=== PATIENT | female | born 1965 | race African-American/Black ===

== ENCOUNTER 2019-03-29 10:20 | Inpatient (IN) ==
[2019-03-29] MEDS ORDERED: VANCOMYCIN INJ 1,000 MG in SODIUM CHLORIDE 0.9% 250 ML IV STA (10:50)
[2019-03-29] MEDS ORDERED: SODIUM CHLORIDE 0.9% 1,000 ML IV STA ×2 (10:50→12:15)
[2019-03-29] MEDS ORDERED: metroNIDAZOLE INJ 500 MG in PREMIX 1 EACH IV STA (11:00)
[2019-03-29] MEDS ORDERED: ONDANSETRON 4 MG/2 ML VIAL IV STA (11:01)
[2019-03-29] MEDS ORDERED: ALBUTEROL/IPRATROPIUM 3 ML NEB RESP TX STA (11:01)
[2019-03-29] MEDS ORDERED: KETOROLAC 30 MG/1 ML VIAL IV STA (11:02)
[2019-03-29] MEDS ORDERED: ACETAMINOPHEN 500 MG TABLET PO STA (11:02)
[2019-03-29 11:32] LABS: Basophils # 0.1 10*3/uL (0.0-0.2); Basophils % 0.2 % (0.0-0.8); Hematocrit 20.4 VOL% (35.7-47.0); Hemoglobin 6.5 GM/DL (12.0-16.0); Immature Granulocytes % 1.1 %; Immature Granulocytes Absolute 0.23 #; Lymphocytes # 1.4 10*3/uL (1.4-4.0); Lymphocytes % 6.6 % (21.3-54.2); Mean Corpuscular HGB Conc 31.9 GM/DL (32-36); Mean Corpuscular Volume 77.3 FL (87-102); Mean Platelet Volume 9.7 FL (9.6-12.0); NRBC # 0.04 10*3/uL; Neutrophils % 90.1 % (38.7-73.9); Platelet Count 283 T/CUMM (130-400); Red Blood Count 2.64 MC/CUMM (3.8-5.5); Red Cell Distribution Width 18.8 % (9.3-17.3); White Blood Count 20.9 T/CUMM (4-12)
[2019-03-29 11:39] LABS: INR 1.1; PT Patient Result 12.1 SECS (9.6-12.2)
[2019-03-29 11:51] LABS: Alanine Aminotransferase 17 U/L (13-56); Albumin 1.6 G/DL (3.4-5.0); Alkaline Phosphatase 633 U/L (45-117); Amylase 117 U/L (25-115); Aspartate Amino Transferase 71 U/L (0-37); Blood Urea Nitrogen 41 MG/DL (7-18); Glucose 104 MG/DL (74-106); Osmolality,Calculated 284.7 MOS/KG (273-304); Total Protein 7.5 G/DL (6.4-8.3); Troponin I < 0.015 NG/ML (0.00-0.045)
[2019-03-29 11:54] LABS: Apearance,Urine Slightly Hazy (Clear); Bacteria,Urine Many /HPF (Few); Bilirubin,Urine Negative (Negative); Blood, Urine Negative (Negative); Glucose,Urine (UA) Negative (Negative); Hyaline Casts,Urine 42 /LPF (0-3); Ketones,Urine Negative (Negative); Nitrite,Urine Negative (Negative); Protein,Urine Negative; Squamous Epithelial Cell,Urine Occasional /HPF (0-10); Urine Color Amber (Yellow); Urine Specific Gravity 1.015 (1.001-1.035); WBC,Urine 12 /HPF (0-6)
[2019-03-29 11:59] LABS: Band Neutrophils 1 % (0-10); Hypochromasia 2+; Lymphocytes 3 % (20-55); Nucleated Red Blood Cells 1 (0-5); Segmented Neutrophils 96 % (50-85); Total Cells Counted 100
[2019-03-29 12:00] LABS: Microcytosis 2+; Ovalocytes Few; Platelet Estimate Normal; Polychromasia Few; Stomatocytes Slight
[2019-03-29] MEDS: cefTRIAXone 2,000 MG in SYRINGE 1 EACH IV SCH (14:40)
[2019-03-29] MEDS ORDERED: ONDANSETRON 4 MG/2 ML VIAL IV PRN (14:59)
[2019-03-29] MEDS ORDERED: ACETAMINOPHEN 325 MG TABLET PO PRN (14:59)
[2019-03-29] MEDS: SODIUM CHLORIDE 0.9% 1,000 ML IV SCH ×2 (15:32→23:38)
[2019-03-29] MEDS: PHENYLEPHRINE DRIP 40 MG/250 ML PREMIX IV PRN ×2 (15:37→21:39)
[2019-03-29] MEDS ORDERED: PHENYLEPHRINE DRIP 40 MG/250 ML PREMIX IV ONE (15:37)
[2019-03-29] MEDS ORDERED: SODIUM CHLORIDE 0.9% 1,000 ML IV PRN (15:57)
[2019-03-29] MEDS: LEVOFLOXACIN INJ 750 MG in PREMIX 1 EACH IV SCH (16:24)
[2019-03-29] MEDS: PANTOPRAZOLE 40 MG TABLET PO SCH (16:43)
[2019-03-29] MEDS ORDERED: ENOXAPARIN 30 MG/0.3 ML SYRINGE SUBCUT SCH (21:00)
[2019-03-30] MEDS: PHENYLEPHRINE DRIP 40 MG/250 ML PREMIX IV PRN ×8 (02:25→22:40)
[2019-03-30 02:42] LABS: Basophils # 0.1 10*3/uL (0.0-0.2); Basophils % 0.2 % (0.0-0.8); Eosinophils % 0.1 % (0.00-10.9); Hematocrit 26.3 VOL% (35.7-47.0); Hemoglobin 8.5 GM/DL (12.0-16.0); Immature Granulocytes % 0.7 %; Immature Granulocytes Absolute 0.18 #; Lymphocytes # 1.4 10*3/uL (1.4-4.0); Lymphocytes % 5.4 % (21.3-54.2); Mean Corpuscular HGB Conc 32.3 GM/DL (32-36); Mean Corpuscular Volume 80.4 FL (87-102); Mean Platelet Volume 9.8 FL (9.6-12.0); Monocytes % 2.4 % (1.7-12.7); NRBC # 0.02 10*3/uL; Neutrophils % 91.2 % (38.7-73.9); Platelet Count 234 T/CUMM (130-400); Red Blood Count 3.27 MC/CUMM (3.8-5.5); Red Cell Distribution Width 19.4 % (9.3-17.3); White Blood Count 26.5 T/CUMM (4-12)
[2019-03-30 02:50] LABS: INR 1.2; PT Patient Result 13.3 SECS (9.6-12.2)
[2019-03-30 03:06] LABS: Albumin 1.3 G/DL (3.4-5.0); Bilirubin,Total 1.1 MG/DL (0.2-1.0); Calcium 7.9 MG/DL (8.5-10.1); Osmolality,Calculated 289.4 MOS/KG (273-304); Total Protein 5.8 G/DL (6.4-8.3)
[2019-03-30] MEDS ORDERED: SODIUM CHLORIDE 0.9% 1,000 ML IV ONE ×2 (03:08→22:28)
[2019-03-30 06:18] LABS: Band Neutrophils 1 % (0-10); Lymphocytes 5 % (20-55); Segmented Neutrophils 92 % (50-85); Total Cells Counted 100
[2019-03-30 06:21] LABS: Anisocytosis 1+; Hypochromasia 1+; Macrocytosis 1+; Platelet Estimate Normal; Target Cells Few
[2019-03-30] MEDS: PANTOPRAZOLE 40 MG TABLET PO SCH (09:09)
[2019-03-30] MEDS: SODIUM CHLORIDE 0.9% 1,000 ML IV SCH ×2 (10:00→17:32)
[2019-03-30] MEDS: cefTRIAXone 2,000 MG in SYRINGE 1 EACH IV SCH (15:50)
[2019-03-30] MEDS: LEVOFLOXACIN INJ 750 MG in PREMIX 1 EACH IV SCH (15:55)
[2019-03-30] MEDS ORDERED: LACTULOSE 20 GM/30 ML UDCUP PO ONE (19:26)
[2019-03-30] MEDS: ENOXAPARIN 40 MG/0.4 ML SYRINGE SUBCUT SCH (20:05)
[2019-03-31] MEDS: PHENYLEPHRINE INJ 80 MG in SODIUM CHLORIDE 0.9% 492 ML IV PRN ×2 (00:32→05:10)
[2019-03-31 01:41] LABS: Basophils # 0.1 10*3/uL (0.0-0.2); Basophils % 0.3 % (0.0-0.8); Hematocrit 28.2 VOL% (35.7-47.0); Hemoglobin 8.8 GM/DL (12.0-16.0); Immature Granulocytes % 0.9 %; Immature Granulocytes Absolute 0.25 #; Lymphocytes # 1.1 10*3/uL (1.4-4.0); Lymphocytes % 3.9 % (21.3-54.2); Mean Corpuscular HGB Conc 31.2 GM/DL (32-36); Mean Platelet Volume 9.9 FL (9.6-12.0); NRBC # 0.05 10*3/uL; Neutrophils % 92.9 % (38.7-73.9); Platelet Count 195 T/CUMM (130-400); Red Blood Count 3.44 MC/CUMM (3.8-5.5); Red Cell Distribution Width 20.3 % (9.3-17.3); White Blood Count 27.2 T/CUMM (4-12)
[2019-03-31 02:07] LABS: Calcium 7.1 MG/DL (8.5-10.1)
[2019-03-31 03:27] LABS: Anisocytosis Slight; Band Neutrophils 5 % (0-10); Burr Cells 1+; Lymphocytes 3 % (20-55); Macrocytosis Slight; Platelet Estimate Normal; Segmented Neutrophils 89 % (50-85); Total Cells Counted 100
[2019-03-31] MEDS: SODIUM CHLORIDE 0.9% 1,000 ML IV SCH (03:40)
[2019-03-31] MEDS ORDERED: MAGNESIUM SULF RIDER 4 GM in PREMIX 1 EACH IV PRN (05:06)
[2019-03-31] MEDS ORDERED: FUROSEMIDE 40 MG/4 ML VIAL IV ONE (05:06)
[2019-03-31] MEDS ORDERED: ALBUTEROL/IPRATROPIUM 3 ML NEB RESP TX ONE (05:06)
[2019-03-31] MEDS: PANTOPRAZOLE 40 MG TABLET PO SCH (08:31)
[2019-03-31] MEDS ORDERED: MAGNESIUM SULF RIDER 2 GM in PREMIX 1 EACH IV ONE (09:06)
[2019-03-31] MEDS: PHENYLEPHRINE DRIP 40 MG/250 ML PREMIX IV PRN (09:42)
[2019-03-31] MEDS: ALBUTEROL/IPRATROPIUM 3 ML NEB RESP TX SCH ×3 (09:45→19:13)
[2019-03-31] MEDS ORDERED: VANCOMYCIN INJ 1,750 MG in SODIUM CHLORIDE 0.9% 500 ML IV ONE (10:00)
[2019-03-31] MEDS: NOREPINEPHRINE 8 MG in SODIUM CHLORIDE 0.9% 242 ML IV PRN (10:43)
[2019-03-31] MEDS: ALPRAZolam 0.25 MG TABLET PO PRN ×3 (11:59→21:25)
[2019-03-31] MEDS: cefTRIAXone 2,000 MG in SYRINGE 1 EACH IV SCH (17:12)
[2019-03-31] MEDS: LEVOFLOXACIN INJ 750 MG in PREMIX 1 EACH IV SCH (17:13)
[2019-03-31] MEDS: VANCOMYCIN INJ 1,250 MG in SODIUM CHLORIDE 0.9% 250 ML IV SCH (20:34)
[2019-03-31] MEDS: ENOXAPARIN 40 MG/0.4 ML SYRINGE SUBCUT SCH (20:34)
[2019-04-01] MEDS: ALBUTEROL/IPRATROPIUM 3 ML NEB RESP TX SCH ×4 (00:36→19:23)
[2019-04-01] MEDS: NOREPINEPHRINE 8 MG in SODIUM CHLORIDE 0.9% 242 ML IV PRN ×2 (02:51→15:47)
[2019-04-01 03:38] LABS: Basophils # 0.1 10*3/uL (0.0-0.2); Basophils % 0.2 % (0.0-0.8); Hematocrit 25.1 VOL% (35.7-47.0); Immature Granulocytes % 1.1 %; Immature Granulocytes Absolute 0.29 #; Lymphocytes # 1.2 10*3/uL (1.4-4.0); Lymphocytes % 4.5 % (21.3-54.2); Mean Corpuscular HGB Conc 31.9 GM/DL (32-36); Mean Corpuscular Volume 83.1 FL (87-102); Mean Platelet Volume 9.7 FL (9.6-12.0); Monocytes % 1.7 % (1.7-12.7); NRBC # 0.02 10*3/uL; Neutrophils % 92.5 % (38.7-73.9); Platelet Count 172 T/CUMM (130-400); Red Blood Count 3.02 MC/CUMM (3.8-5.5); Red Cell Distribution Width 21.6 % (9.3-17.3); White Blood Count 26.1 T/CUMM (4-12)
[2019-04-01 04:14] LABS: Albumin 1.3 G/DL (3.4-5.0); Bilirubin,Total 0.5 MG/DL (0.2-1.0); Total Protein 5.2 G/DL (6.4-8.3)
[2019-04-01 04:30] LABS: Lymphocytes 5 % (20-55); Segmented Neutrophils 94 % (50-85); Total Cells Counted 100
[2019-04-01 04:31] LABS: Hypochromasia 1+; Platelet Estimate Normal; Target Cells Few
[2019-04-01 04:32] LABS: Polychromasia Few
[2019-04-01] MEDS: ALPRAZolam 0.25 MG TABLET PO PRN ×3 (05:28→20:07)
[2019-04-01] MEDS: MAGNESIUM SULF RIDER 2 GM in PREMIX 1 EACH IV PRN (09:12)
[2019-04-01] MEDS: VANCOMYCIN INJ 1,250 MG in SODIUM CHLORIDE 0.9% 250 ML IV SCH ×2 (09:12→20:07)
[2019-04-01] MEDS: PANTOPRAZOLE 40 MG TABLET PO SCH (09:12)
[2019-04-01] MEDS: cefTRIAXone 2,000 MG in SYRINGE 1 EACH IV SCH (14:58)
[2019-04-01] MEDS: POTASSIUM CHLORIDE RIDER 20 MEQ in PREMIX 1 EACH IV PRN ×2 (15:00→20:50)
[2019-04-01] MEDS: LEVOFLOXACIN INJ 750 MG in PREMIX 1 EACH IV SCH (16:47)
[2019-04-01] MEDS ORDERED: LACTATED RINGERS 2,000 ML IV ONE (18:19)
[2019-04-01] MEDS: POTASSIUM CHLORIDE RIDER 10 MEQ in PREMIX 1 EACH IV PRN (22:50)
[2019-04-02] MEDS: ALBUTEROL/IPRATROPIUM 3 ML NEB RESP TX SCH ×4 (00:22→21:08)
[2019-04-02] MEDS ORDERED: LORazepam 2 MG/1 ML VIAL IV ONE (01:30)
[2019-04-02] MEDS: NOREPINEPHRINE 8 MG in SODIUM CHLORIDE 0.9% 242 ML IV PRN ×3 (04:15→23:20)
[2019-04-02 04:47] LABS: Basophils # 0.1 10*3/uL (0.0-0.2); Basophils % 0.3 % (0.0-0.8); Hematocrit 25.3 VOL% (35.7-47.0); Immature Granulocytes % 1.1 %; Immature Granulocytes Absolute 0.27 #; Lymphocytes # 0.6 10*3/uL (1.4-4.0); Lymphocytes % 2.3 % (21.3-54.2); Mean Corpuscular HGB Conc 31.6 GM/DL (32-36); Mean Corpuscular Volume 84.1 FL (87-102); Mean Platelet Volume 10.3 FL (9.6-12.0); Monocytes % 1.5 % (1.7-12.7); NRBC # 0.02 10*3/uL; Neutrophils % 94.8 % (38.7-73.9); Platelet Count 169 T/CUMM (130-400); Red Blood Count 3.01 MC/CUMM (3.8-5.5); Red Cell Distribution Width 22.5 % (9.3-17.3); White Blood Count 24.1 T/CUMM (4-12)
[2019-04-02 05:01] LABS: Albumin 1.2 G/DL (3.4-5.0); Bilirubin,Total 0.4 MG/DL (0.2-1.0); Calcium 7.7 MG/DL (8.5-10.1); Osmolality,Calculated 288.1 MOS/KG (273-304); Total Protein 5.1 G/DL (6.4-8.3)
[2019-04-02 05:11] LABS: Band Neutrophils 3 % (0-10); Hypochromasia 2+; Lymphocytes 2 % (20-55); Ovalocytes 1+; Platelet Estimate Normal; Segmented Neutrophils 93 % (50-85); Target Cells 2+; Total Cells Counted 100
[2019-04-02] MEDS: MAGNESIUM SULF RIDER 2 GM in PREMIX 1 EACH IV PRN (05:49)
[2019-04-02] MEDS: POTASSIUM CHLORIDE RIDER 20 MEQ in PREMIX 1 EACH IV PRN (05:51)
[2019-04-02] MEDS ORDERED: ALBUMIN 5% 25 GM in PREMIX 1 EACH IV ONE (06:45)
[2019-04-02] MEDS: POTASSIUM CHLORIDE RIDER 10 MEQ in PREMIX 1 EACH IV PRN (07:51)
[2019-04-02] MEDS: PANTOPRAZOLE 40 MG TABLET PO SCH (08:33)
[2019-04-02] MEDS: VANCOMYCIN INJ 1,250 MG in SODIUM CHLORIDE 0.9% 250 ML IV SCH ×2 (08:34→22:15)
[2019-04-02] MEDS: cefTRIAXone 2,000 MG in SYRINGE 1 EACH IV SCH (14:44)
[2019-04-02] MEDS: LEVOFLOXACIN INJ 750 MG in PREMIX 1 EACH IV SCH (16:20)
[2019-04-02] MEDS: ALPRAZolam 0.25 MG TABLET PO PRN (16:20)
[2019-04-02] MEDS: COLLAGENASE OINT 30 GM TUBE TOP SCH (16:20)
[2019-04-02] MEDS: SODIUM CHLORIDE 0.9% 1,000 ML IV SCH ×2 (18:10→23:30)
[2019-04-02] MEDS: ALBUMIN 5% 12.5 GM in PREMIX 1 EACH IV SCH (18:11)
[2019-04-02] MEDS ORDERED: PROPOFOL 200 MG/20 ML VIAL IV ONE (19:42)
[2019-04-02] MEDS ORDERED: VECURONIUM 10 MG VIAL IV ONE (19:42)
[2019-04-02] MEDS ORDERED: ETOMIDATE 20 MG/10 ML VIAL IV ONE (19:42)
[2019-04-02] MEDS ORDERED: PROPOFOL 1,000 MG/100 ML BOTTLE IV ONE (19:42)
[2019-04-02] MEDS ORDERED: EPINEPHrine 1 MG/ML VIAL ONE (20:03)
[2019-04-02] MEDS: PHENYLEPHRINE DRIP 40 MG/250 ML PREMIX IV PRN (20:14)
[2019-04-02 21:12] LABS: ABG Base Excess -3.5 MMOL/L (-2.5-2.5); ABG HCO3 25.2 MMOL/L (20-26); ABG Oxygen Saturation 98.4 % (95-100); ABG TCO2 27.3 MMOL/L (23-27); Pt O2 Delivery Device Ventilator
[2019-04-02 21:14] LABS: ABG PCO2 70.9 MM HG (35-48); ABG PH 7.168 (7.35-7.45)
[2019-04-02] MEDS: PROPOFOL 1,000 MG/100 ML BOTTLE IV SCH (22:15)
[2019-04-02] MEDS ORDERED: AMIODARONE INJ 300 MG in DEXTROSE 5% 100 ML IV ONE (23:03)
[2019-04-02] MEDS ORDERED: AMIODARONE INJ 450 MG in DEXTROSE 5% 241 ML IV SCH (23:30)
[2019-04-03] MEDS: ALBUMIN 5% 12.5 GM in PREMIX 1 EACH IV SCH ×3 (00:39→18:40)
[2019-04-03 02:08] LABS: Basophils # 0.1 10*3/uL (0.0-0.2); Basophils % 0.3 % (0.0-0.8); Hematocrit 23.8 VOL% (35.7-47.0); Hemoglobin 7.2 GM/DL (12.0-16.0); Immature Granulocytes % 1.3 %; Immature Granulocytes Absolute 0.36 #; Lymphocytes # 0.5 10*3/uL (1.4-4.0); Lymphocytes % 1.9 % (21.3-54.2); Mean Corpuscular HGB Conc 30.3 GM/DL (32-36); Mean Corpuscular Volume 85.3 FL (87-102); Mean Platelet Volume 10.7 FL (9.6-12.0); Monocytes % 1.6 % (1.7-12.7); NRBC # 0.02 10*3/uL; Neutrophils % 94.9 % (38.7-73.9); Platelet Count 128 T/CUMM (130-400); Red Blood Count 2.79 MC/CUMM (3.8-5.5); Red Cell Distribution Width 22.5 % (9.3-17.3); White Blood Count 27.6 T/CUMM (4-12)
[2019-04-03] MEDS: PROPOFOL 1,000 MG/100 ML BOTTLE IV SCH ×5 (02:23→22:25)
[2019-04-03] MEDS: ALBUTEROL/IPRATROPIUM 3 ML NEB RESP TX SCH ×4 (02:24→19:30)
[2019-04-03 02:26] LABS: ABG Base Excess -4.1 MMOL/L (-2.5-2.5); ABG HCO3 21.5 MMOL/L (20-26); ABG Oxygen Saturation 98.4 % (95-100); ABG PCO2 41.8 MM HG (35-48); ABG PH 7.329 (7.35-7.45); ABG PO2 138.8 MM HG (80-95); ABG TCO2 22.8 MMOL/L (23-27); Pt O2 Delivery Device Ventilator
[2019-04-03 02:26] LABS: Calcium 8.1 MG/DL (8.5-10.1); Osmolality,Calculated 297.4 MOS/KG (273-304)
[2019-04-03 02:28] LABS: Albumin 1.8 G/DL (3.4-5.0); Bilirubin,Total 0.5 MG/DL (0.2-1.0); Osmolality,Calculated 295.6 MOS/KG (273-304); Total Protein 5.1 G/DL (6.4-8.3)
[2019-04-03 03:46] LABS: Lymphocytes 1 % (20-55); Segmented Neutrophils 99 % (50-85); Total Cells Counted 100
[2019-04-03 03:47] LABS: Hypochromasia 1+; Microcytosis 1+; Platelet Estimate Decreased; Polychromasia Few; Smudge Cells Few
[2019-04-03] MEDS: VANCOMYCIN INJ 1,250 MG in SODIUM CHLORIDE 0.9% 250 ML IV SCH ×2 (03:59→23:35)
[2019-04-03] MEDS: NOREPINEPHRINE 8 MG in SODIUM CHLORIDE 0.9% 242 ML IV PRN ×5 (04:00→19:35)
[2019-04-03] MEDS: POTASSIUM CHLORIDE RIDER 20 MEQ in PREMIX 1 EACH IV PRN (06:24)
[2019-04-03] MEDS: SODIUM CHLORIDE 0.9% 1,000 ML IV SCH ×3 (06:30→21:30)
[2019-04-03] MEDS ORDERED: AMIODARONE 150 MG/3 ML VIAL ONE (07:27)
[2019-04-03] MEDS: AMIODARONE INJ 450 MG in DEXTROSE 5% 241 ML IV SCH ×2 (07:31→23:35)
[2019-04-03] MEDS ORDERED: PIPERACILLIN/TAZOBACTAM 3,375 MG in SODIUM CHLORIDE 0.9% 100 ML IV SCH (08:00)
[2019-04-03] MEDS ORDERED: SODIUM CHLORIDE 0.9% 1,000 ML IV PRN (08:00)
[2019-04-03] MEDS: methylPREDNISolone SOD SUC 40 MG/1 ML VIAL IV SCH ×2 (09:11→15:10)
[2019-04-03] MEDS: PANTOPRAZOLE 40 MG TABLET PO SCH (09:13)
[2019-04-03] MEDS: COLLAGENASE OINT 30 GM TUBE TOP SCH (09:15)
[2019-04-03] MEDS: MEROPENEM 500 MG in SODIUM CHLORIDE 0.9% 100 ML IV SCH ×3 (09:17→22:30)
[2019-04-03] MEDS: LANSOPRAZOLE ODT 30 MG TABLET PER TUBE SCH (09:29)
[2019-04-03] MEDS ORDERED: FUROSEMIDE 40 MG/4 ML VIAL IV ONE (20:50)
[2019-04-03] MEDS: NOREPINEPHRINE 16 MG in SODIUM CHLORIDE 0.9% 234 ML IV PRN (23:00)
[2019-04-03 23:34] LABS: Hematocrit 29.1 VOL% (35.7-47.0); Hemoglobin 9.2 GM/DL (12.0-16.0)
[2019-04-04] MEDS: methylPREDNISolone SOD SUC 40 MG/1 ML VIAL IV SCH ×3 (00:40→18:28)
[2019-04-04] MEDS: ALBUTEROL/IPRATROPIUM 3 ML NEB RESP TX SCH ×5 (00:58→19:11)
[2019-04-04] MEDS: ALBUMIN 5% 12.5 GM in PREMIX 1 EACH IV SCH ×3 (01:35→18:28)
[2019-04-04 03:21] LABS: ABG Base Excess -8.3 MMOL/L (-2.5-2.5); ABG HCO3 17.6 MMOL/L (20-26); ABG Oxygen Saturation 91.9 % (95-100); ABG PCO2 41.1 MM HG (35-48); ABG PH 7.258 (7.35-7.45); ABG TCO2 17.2 MMOL/L (23-27); Allen Test Positive; Pt O2 Delivery Device Ventilator
[2019-04-04] MEDS: PROPOFOL 1,000 MG/100 ML BOTTLE IV SCH ×3 (03:30→19:45)
[2019-04-04] MEDS: MEROPENEM 500 MG in SODIUM CHLORIDE 0.9% 100 ML IV SCH ×4 (03:40→21:15)
[2019-04-04 04:16] LABS: Basophils % 0.1 % (0.0-0.8); Hematocrit 27.8 VOL% (35.7-47.0); Hemoglobin 8.7 GM/DL (12.0-16.0); Immature Granulocytes % 0.9 %; Immature Granulocytes Absolute 0.14 #; Lymphocytes # 0.6 10*3/uL (1.4-4.0); Lymphocytes % 3.7 % (21.3-54.2); Mean Corpuscular HGB Conc 31.3 GM/DL (32-36); Mean Corpuscular Volume 88.8 FL (87-102); Mean Platelet Volume 10.7 FL (9.6-12.0); Monocytes % 1.5 % (1.7-12.7); NRBC # 0.05 10*3/uL; Neutrophils % 93.8 % (38.7-73.9); Red Blood Count 3.13 MC/CUMM (3.8-5.5); Red Cell Distribution Width 21.2 % (9.3-17.3); White Blood Count 16.2 T/CUMM (4-12)
[2019-04-04 04:17] LABS: Bilirubin,Total 0.7 MG/DL (0.2-1.0); Osmolality,Calculated 292.7 MOS/KG (273-304); Total Protein 5.5 G/DL (6.4-8.3)
[2019-04-04 04:19] LABS: Platelet Count 95 T/CUMM (130-400)
[2019-04-04] MEDS: SODIUM CHLORIDE 0.9% 1,000 ML IV SCH ×3 (04:30→20:04)
[2019-04-04 04:35] LABS: Band Neutrophils 3 % (0-10); Lymphocytes 5 % (20-55); Nucleated Red Blood Cells 2 (0-5); Platelet Estimate Decreased; Segmented Neutrophils 90 % (50-85); Total Cells Counted 100
[2019-04-04 04:36] LABS: Hypochromasia 1+; Microcytosis 1+
[2019-04-04] MEDS: NOREPINEPHRINE 16 MG in SODIUM CHLORIDE 0.9% 234 ML IV PRN ×2 (10:00→22:00)
[2019-04-04] MEDS: AMIODARONE 200 MG TABLET PER TUBE SCH ×2 (10:15→21:17)
[2019-04-04] MEDS: COLLAGENASE OINT 30 GM TUBE TOP SCH (10:30)
[2019-04-04] MEDS: LANSOPRAZOLE ODT 30 MG TABLET PER TUBE SCH (10:30)
[2019-04-04] MEDS: ENOXAPARIN 40 MG/0.4 ML SYRINGE SUBCUT SCH (12:28)
[2019-04-04] MEDS: VANCOMYCIN INJ 1,250 MG in SODIUM CHLORIDE 0.9% 250 ML IV SCH (16:00)
[2019-04-04] MEDS: SODIUM BICARB INJ 50 MEQ in SODIUM CHLORIDE 0.45% 1,000 ML IV SCH (16:30)
[2019-04-04] MEDS: FONDAPARINUX 2.5 MG/0.5 ML SYRINGE SUBCUT SCH (21:15)
[2019-04-05] MEDS: methylPREDNISolone SOD SUC 40 MG/1 ML VIAL IV SCH ×4 (00:40→22:51)
[2019-04-05] MEDS: ALBUTEROL/IPRATROPIUM 3 ML NEB RESP TX SCH ×4 (00:58→20:20)
[2019-04-05] MEDS: ALBUMIN 5% 12.5 GM in PREMIX 1 EACH IV SCH ×4 (01:00→23:56)
[2019-04-05 03:20] LABS: ABG Base Excess -7.7 MMOL/L (-2.5-2.5); ABG Oxygen Saturation 87.3 % (95-100); ABG PH 7.283 (7.35-7.45); ABG PO2 58.6 MM HG (80-95); ABG TCO2 17.3 MMOL/L (23-27); Allen Test Positive; Pt O2 Delivery Device Ventilator
[2019-04-05] MEDS: SODIUM BICARB INJ 50 MEQ in SODIUM CHLORIDE 0.45% 1,000 ML IV SCH ×2 (03:45→21:11)
[2019-04-05] MEDS: MEROPENEM 500 MG in SODIUM CHLORIDE 0.9% 100 ML IV SCH ×4 (03:50→20:21)
[2019-04-05] MEDS: PROPOFOL 1,000 MG/100 ML BOTTLE IV SCH ×3 (04:24→23:23)
[2019-04-05 05:29] LABS: Basophils % 0.2 % (0.0-0.8); Hematocrit 28.3 VOL% (35.7-47.0); Hemoglobin 8.8 GM/DL (12.0-16.0); Immature Granulocytes % 0.7 %; Immature Granulocytes Absolute 0.12 #; Lymphocytes # 0.7 10*3/uL (1.4-4.0); Mean Corpuscular HGB Conc 31.1 GM/DL (32-36); Mean Corpuscular Volume 89.8 FL (87-102); Mean Platelet Volume 10.4 FL (9.6-12.0); Monocytes % 1.7 % (1.7-12.7); NRBC # 0.06 10*3/uL; Neutrophils % 93.4 % (38.7-73.9); Platelet Count 59 T/CUMM (130-400); Red Blood Count 3.15 MC/CUMM (3.8-5.5); Red Cell Distribution Width 22.4 % (9.3-17.3); White Blood Count 16.9 T/CUMM (4-12)
[2019-04-05 05:44] LABS: Calcium 8.6 MG/DL (8.5-10.1); Osmolality,Calculated 295.6 MOS/KG (273-304)
[2019-04-05 05:45] LABS: Band Neutrophils 1 % (0-10); Hypochromasia 1+; Lymphocytes 3 % (20-55); Nucleated Red Blood Cells 1 (0-5); Platelet Estimate Decreased; Segmented Neutrophils 95 % (50-85); Total Cells Counted 100
[2019-04-05 05:46] LABS: Microcytosis 1+
[2019-04-05] MEDS: NOREPINEPHRINE 16 MG in SODIUM CHLORIDE 0.9% 234 ML IV PRN ×2 (07:30→17:00)
[2019-04-05] MEDS: AMIODARONE 200 MG TABLET PER TUBE SCH ×2 (08:42→20:21)
[2019-04-05] MEDS: COLLAGENASE OINT 30 GM TUBE TOP SCH (08:43)
[2019-04-05] MEDS: LANSOPRAZOLE ODT 30 MG TABLET PER TUBE SCH (08:43)
[2019-04-05] MEDS: VANCOMYCIN INJ 1,250 MG in SODIUM CHLORIDE 0.9% 250 ML IV SCH (08:43)
[2019-04-05] MEDS ORDERED: FUROSEMIDE 40 MG/4 ML VIAL IV ONE ×2 (09:05→20:00)
[2019-04-05] MEDS ORDERED: BISACODYL 10 MG SUPP RECTAL ONE (11:00)
[2019-04-05 11:24] LABS: ABG Base Excess -10.2 MMOL/L (-2.5-2.5); ABG PCO2 47.6 MM HG (35-48); ABG PO2 60.1 MM HG (80-95)
[2019-04-05 11:27] LABS: ABG PH 7.182 (7.35-7.45)
[2019-04-05 11:38] LABS: Calcium 8.4 MG/DL (8.5-10.1); Osmolality,Calculated 295.6 MOS/KG (273-304)
[2019-04-05] MEDS ORDERED: SODIUM BICARBONATE 50 MEQ/50 ML VIAL IV ONE ×3 (11:42→18:35)
[2019-04-05] MEDS ORDERED: DEXTROSE 50% 25 GM/50 ML VIAL IV PRN (12:17)
[2019-04-05] MEDS ORDERED: GLUCAGON 1 MG VIAL IM PRN (12:17)
[2019-04-05] MEDS ORDERED: TRACE ELEMENTS (5) 1 ML, MULTIVITAMIN INJ 10 ML in AMINO ACIDS/DEXT/LYTES 5-15% 1,000 ML IV SCH (17:00)
[2019-04-05] MEDS ORDERED: DEXTROSE 10% 1,000 ML IV PRN (17:00)
[2019-04-05 17:36] LABS: ABG Base Excess -9.6 MMOL/L (-2.5-2.5); ABG HCO3 16.7 MMOL/L (20-26); ABG Oxygen Saturation 96.4 % (95-100); ABG PO2 97.8 MM HG (80-95); ABG TCO2 17.1 MMOL/L (23-27); Allen Test Positive; Pt O2 Delivery Device Ventilator
[2019-04-05 17:41] LABS: ABG PH 7.203 (7.35-7.45)
[2019-04-05] MEDS: INSULIN REGULAR 100 UNIT/ML SUBCUT SCH ×2 (19:20→23:24)
[2019-04-05] MEDS ORDERED: FUROSEMIDE 20 MG/2 ML VIAL ONE (20:13)
[2019-04-05] MEDS: FONDAPARINUX 2.5 MG/0.5 ML SYRINGE SUBCUT SCH (20:21)
[2019-04-06] MEDS: NOREPINEPHRINE 16 MG in SODIUM CHLORIDE 0.9% 234 ML IV PRN ×2 (00:33→12:24)
[2019-04-06] MEDS: ALBUTEROL/IPRATROPIUM 3 ML NEB RESP TX SCH ×4 (00:49→19:36)
[2019-04-06] MEDS: MEROPENEM 500 MG in SODIUM CHLORIDE 0.9% 100 ML IV SCH ×4 (01:38→20:04)
[2019-04-06] MEDS: VANCOMYCIN INJ 1,250 MG in SODIUM CHLORIDE 0.9% 250 ML IV SCH (02:21)
[2019-04-06 03:57] LABS: Basophils % 0.1 % (0.0-0.8); Hematocrit 25.6 VOL% (35.7-47.0); Hemoglobin 7.9 GM/DL (12.0-16.0); Immature Granulocytes % 0.6 %; Immature Granulocytes Absolute 0.08 #; Lymphocytes # 0.8 10*3/uL (1.4-4.0); Lymphocytes % 5.6 % (21.3-54.2); Mean Corpuscular HGB Conc 30.9 GM/DL (32-36); Mean Corpuscular Volume 91.4 FL (87-102); Mean Platelet Volume 12.5 FL (9.6-12.0); NRBC # 0.15 10*3/uL; Neutrophils % 90.7 % (38.7-73.9); Red Cell Distribution Width 22.3 % (9.3-17.3); White Blood Count 13.8 T/CUMM (4-12)
[2019-04-06 04:04] LABS: Platelet Count 35 T/CUMM (130-400)
[2019-04-06 04:09] LABS: Calcium 8.1 MG/DL (8.5-10.1); Osmolality,Calculated 304.3 MOS/KG (273-304)
[2019-04-06] MEDS: MAGNESIUM SULF RIDER 2 GM in PREMIX 1 EACH IV PRN (04:15)
[2019-04-06 04:22] LABS: Prealbumin 4.5 MG/DL (20-40)
[2019-04-06 04:39] LABS: Band Neutrophils 5 % (0-10); Lymphocytes 7 % (20-55); Nucleated Red Blood Cells 2 (0-5); Segmented Neutrophils 88 % (50-85); Total Cells Counted 100
[2019-04-06 04:40] LABS: Acanthocytes Few; Anisocytosis 1+; Hypochromasia 1+; Platelet Estimate Decreased; Target Cells Few; Tear Drop Cells 1+
[2019-04-06 04:54] LABS: ABG HCO3 19.9 MMOL/L (20-26); ABG Oxygen Saturation 98.7 % (95-100); ABG PCO2 40.9 MM HG (35-48); ABG PH 7.305 (7.35-7.45); ABG TCO2 21.2 MMOL/L (23-27); Allen Test Positive; Pt O2 Delivery Device Ventilator
[2019-04-06] MEDS: INSULIN REGULAR 100 UNIT/ML SUBCUT SCH ×4 (05:16→23:44)
[2019-04-06] MEDS: methylPREDNISolone SOD SUC 40 MG/1 ML VIAL IV SCH ×2 (06:29→18:25)
[2019-04-06] MEDS: PROPOFOL 1,000 MG/100 ML BOTTLE IV SCH ×2 (06:36→21:16)
[2019-04-06] MEDS: ALBUMIN 5% 12.5 GM in PREMIX 1 EACH IV SCH ×3 (09:16→23:45)
[2019-04-06] MEDS: AMIODARONE 200 MG TABLET PER TUBE SCH ×2 (09:17→20:03)
[2019-04-06] MEDS: LANSOPRAZOLE ODT 30 MG TABLET PER TUBE SCH (09:18)
[2019-04-06] MEDS: COLLAGENASE OINT 30 GM TUBE TOP SCH (09:18)
[2019-04-06] MEDS: fentaNYL INJ 1,250 MCG in SODIUM CHLORIDE 0.9% 225 ML IV PRN ×2 (10:12→23:10)
[2019-04-06] MEDS: FUROSEMIDE 40 MG/4 ML VIAL IV SCH ×2 (10:29→18:24)
[2019-04-06] MEDS ORDERED: NOREPINEPHRINE 4 MG/4 ML VIAL IV ONE ×2 (12:15→12:16)
[2019-04-06] MEDS ORDERED: SODIUM BICARBONATE 50 MEQ/50 ML VIAL IV ONE (13:57)
[2019-04-06] MEDS ORDERED: BISACODYL 10 MG SUPP RECTAL PRN (14:39)
[2019-04-06] MEDS: FAT EMULSION 20% 250 ML IV SCH (14:46)
[2019-04-06 15:59] LABS: INR 1.4; PT Patient Result 15.2 SECS (9.6-12.2)
[2019-04-06 16:07] LABS: Partial Thromboplastin Time 42.3 SECS (20.8-36.0)
[2019-04-06] MEDS ORDERED: TRACE ELEMENTS (5) 1 ML, MULTIVITAMIN INJ 10 ML in AMINO ACIDS/DEXT/LYTES 5-15% 2,000 ML IV SCH (17:00)
[2019-04-06] MEDS: ELECTROLYTE IV SCH (18:24)
[2019-04-06] MEDS: TRACE ELEMENTS IV SCH (18:24)
[2019-04-06] MEDS: MULTIVITAMIN IV SCH (18:24)
[2019-04-06] MEDS: [UNRECOGNIZED DRUG - OTHER] IV SCH (18:24)
[2019-04-06] MEDS ORDERED: DEXTROSE 10% 1,000 ML IV PRN (19:00)
[2019-04-07] MEDS: ALBUTEROL/IPRATROPIUM 3 ML NEB RESP TX SCH ×4 (00:14→19:32)
[2019-04-07] MEDS: NOREPINEPHRINE 16 MG in SODIUM CHLORIDE 0.9% 234 ML IV PRN (01:00)
[2019-04-07] MEDS: FUROSEMIDE 40 MG/4 ML VIAL IV SCH ×4 (02:14→23:15)
[2019-04-07] MEDS: MEROPENEM 500 MG in SODIUM CHLORIDE 0.9% 100 ML IV SCH ×4 (02:14→20:12)
[2019-04-07 04:41] LABS: ABG HCO3 20.3 MMOL/L (20-26); ABG Oxygen Saturation 99.6 % (95-100); ABG PCO2 46.8 MM HG (35-48); ABG PH 7.274 (7.35-7.45); ABG TCO2 20.7 MMOL/L (23-27); Allen Test Positive; Pt O2 Delivery Device Ventilator
[2019-04-07 05:02] LABS: Basophils % 0.1 % (0.0-0.8); Hematocrit 22.7 VOL% (35.7-47.0); Hemoglobin 6.9 GM/DL (12.0-16.0); Immature Granulocytes % 0.6 %; Immature Granulocytes Absolute 0.09 #; Lymphocytes # 0.6 10*3/uL (1.4-4.0); Lymphocytes % 4.3 % (21.3-54.2); Mean Corpuscular HGB Conc 30.4 GM/DL (32-36); Mean Platelet Volume 11.2 FL (9.6-12.0); Monocytes % 2.9 % (1.7-12.7); Neutrophils % 92.1 % (38.7-73.9); Red Blood Count 2.44 MC/CUMM (3.8-5.5); Red Cell Distribution Width 22.1 % (9.3-17.3)
[2019-04-07 05:07] LABS: Platelet Count 27 T/CUMM (130-400)
[2019-04-07 05:29] LABS: Calcium 8.2 MG/DL (8.5-10.1)
[2019-04-07 05:32] LABS: Anisocytosis 2+; Lymphocytes 4 % (20-55); Microcytosis Slight; Nucleated Red Blood Cells 1 (0-5); Segmented Neutrophils 95 % (50-85); Total Cells Counted 100
[2019-04-07 05:33] LABS: Hypochromasia 1+; Polychromasia Slight; Stomatocytes 1+
[2019-04-07 05:34] LABS: Platelet Estimate Decreased; Target Cells Slight
[2019-04-07] MEDS: INSULIN REGULAR 100 UNIT/ML SUBCUT SCH ×3 (05:40→18:53)
[2019-04-07] MEDS: methylPREDNISolone SOD SUC 40 MG/1 ML VIAL IV SCH ×2 (05:40→18:59)
[2019-04-07] MEDS: POTASSIUM CHLORIDE RIDER 20 MEQ in PREMIX 1 EACH IV PRN (05:42)
[2019-04-07] MEDS ORDERED: SODIUM CHLORIDE 0.9% 1,000 ML IV PRN ×4 (05:52→10:52)
[2019-04-07] MEDS: fentaNYL INJ 1,250 MCG in SODIUM CHLORIDE 0.9% 225 ML IV PRN ×3 (06:03→19:43)
[2019-04-07] MEDS: BISACODYL 10 MG SUPP RECTAL SCH (09:04)
[2019-04-07] MEDS: LANSOPRAZOLE ODT 30 MG TABLET PER TUBE SCH (09:04)
[2019-04-07] MEDS: ALBUMIN 5% 12.5 GM in PREMIX 1 EACH IV SCH ×2 (09:04→16:55)
[2019-04-07] MEDS: AMIODARONE 200 MG TABLET PER TUBE SCH ×2 (09:04→20:12)
[2019-04-07] MEDS: COLLAGENASE OINT 30 GM TUBE TOP SCH (09:05)
[2019-04-07] MEDS: VANCOMYCIN INJ 1,250 MG in SODIUM CHLORIDE 0.9% 250 ML IV SCH (14:42)
[2019-04-07] MEDS: FAT EMULSION 20% 250 ML IV SCH (14:42)
[2019-04-07] MEDS: MULTIVITAMIN IV SCH (19:00)
[2019-04-07] MEDS: [UNRECOGNIZED DRUG - OTHER] IV SCH (19:00)
[2019-04-07] MEDS: ELECTROLYTE IV SCH (19:00)
[2019-04-07] MEDS: TRACE ELEMENTS IV SCH (19:00)
[2019-04-07 23:14] LABS: Basophils % 0.2 % (0.0-0.8); Hematocrit 24.3 VOL% (35.7-47.0); Hemoglobin 7.9 GM/DL (12.0-16.0); Immature Granulocytes % 0.9 %; Immature Granulocytes Absolute 0.11 #; Lymphocytes # 0.6 10*3/uL (1.4-4.0); Lymphocytes % 4.6 % (21.3-54.2); Mean Corpuscular HGB Conc 32.5 GM/DL (32-36); Mean Corpuscular Volume 93.1 FL (87-102); Mean Platelet Volume 12.3 FL (9.6-12.0); Monocytes % 2.2 % (1.7-12.7); NRBC # 0.14 10*3/uL; Neutrophils % 92.1 % (38.7-73.9); Red Blood Count 2.61 MC/CUMM (3.8-5.5); Red Cell Distribution Width 20.4 % (9.3-17.3); White Blood Count 12.1 T/CUMM (4-12)
[2019-04-07 23:17] LABS: Platelet Count 34 T/CUMM (130-400)
[2019-04-07 23:37] LABS: Anisocytosis 2+; Band Neutrophils 1 % (0-10); Lymphocytes 3 % (20-55); Nucleated Red Blood Cells 1 (0-5); Segmented Neutrophils 95 % (50-85); Total Cells Counted 100
[2019-04-07 23:38] LABS: Microcytosis 1+; Polychromasia Slight
[2019-04-07 23:39] LABS: Tear Drop Cells Slight
[2019-04-07 23:40] LABS: Platelet Estimate Decreased; Stomatocytes Slight; Target Cells Slight
[2019-04-08] MEDS: INSULIN REGULAR 100 UNIT/ML SUBCUT SCH ×5 (00:11→23:59)
[2019-04-08] MEDS: ALBUMIN 5% 12.5 GM in PREMIX 1 EACH IV SCH ×3 (00:19→17:11)
[2019-04-08] MEDS: ALBUTEROL/IPRATROPIUM 3 ML NEB RESP TX SCH ×4 (00:52→19:10)
[2019-04-08] MEDS: fentaNYL INJ 1,250 MCG in SODIUM CHLORIDE 0.9% 225 ML IV PRN ×4 (02:15→20:45)
[2019-04-08] MEDS ORDERED: FUROSEMIDE 40 MG/4 ML VIAL IV ONE (02:19)
[2019-04-08] MEDS ORDERED: AMIODARONE 450 MG/9 ML VIAL IV ONE (02:47)
[2019-04-08] MEDS ORDERED: AMIODARONE INJ 450 MG in DEXTROSE 5% 241 ML IV SCH (03:00)
[2019-04-08 03:09] LABS: Basophils % 0.2 % (0.0-0.8); Hematocrit 24.9 VOL% (35.7-47.0); Hemoglobin 7.4 GM/DL (12.0-16.0); Immature Granulocytes % 0.7 %; Immature Granulocytes Absolute 0.08 #; Lymphocytes # 0.6 10*3/uL (1.4-4.0); Lymphocytes % 4.8 % (21.3-54.2); Mean Corpuscular HGB Conc 29.7 GM/DL (32-36); Mean Platelet Volume 12.8 FL (9.6-12.0); Monocytes % 2.1 % (1.7-12.7); NRBC # 0.13 10*3/uL; Neutrophils % 92.2 % (38.7-73.9); Red Blood Count 2.62 MC/CUMM (3.8-5.5); Red Cell Distribution Width 20.4 % (9.3-17.3); White Blood Count 11.7 T/CUMM (4-12)
[2019-04-08 03:12] LABS: Calcium 8.6 MG/DL (8.5-10.1); Osmolality,Calculated 306.4 MOS/KG (273-304); Prealbumin 11.9 MG/DL (20-40)
[2019-04-08 03:16] LABS: Platelet Count 29 T/CUMM (130-400)
[2019-04-08 03:20] LABS: INR 1.1; PT Patient Result 12.4 SECS (9.6-12.2); Partial Thromboplastin Time 32.4 SECS (20.8-36.0)
[2019-04-08 03:49] LABS: Lymphocytes 7 % (20-55); Nucleated Red Blood Cells 1 (0-5); Segmented Neutrophils 92 % (50-85); Total Cells Counted 100
[2019-04-08 03:50] LABS: Anisocytosis 2+; Microcytosis 1+; Polychromasia Slight; Stomatocytes Few
[2019-04-08 03:51] LABS: Target Cells Slight
[2019-04-08 03:52] LABS: Ovalocytes Few
[2019-04-08 03:53] LABS: Platelet Estimate Decreased; Tear Drop Cells Slight
[2019-04-08] MEDS: MEROPENEM 500 MG in SODIUM CHLORIDE 0.9% 100 ML IV SCH ×2 (04:10→09:48)
[2019-04-08] MEDS: COLLAGENASE OINT 30 GM TUBE TOP SCH ×2 (04:30→09:32)
[2019-04-08 05:19] LABS: ABG HCO3 20.2 MMOL/L (20-26); ABG Oxygen Saturation 99.4 % (95-100); ABG PCO2 53.4 MM HG (35-48); ABG PH 7.234 (7.35-7.45); ABG TCO2 21.5 MMOL/L (23-27)
[2019-04-08] MEDS: methylPREDNISolone SOD SUC 40 MG/1 ML VIAL IV SCH ×2 (06:02→18:24)
[2019-04-08] MEDS: POTASSIUM CHLORIDE RIDER 20 MEQ in PREMIX 1 EACH IV PRN ×3 (06:05→20:08)
[2019-04-08] MEDS: NOREPINEPHRINE 16 MG in SODIUM CHLORIDE 0.9% 234 ML IV PRN (06:45)
[2019-04-08] MEDS: AMIODARONE 200 MG TABLET PER TUBE SCH ×2 (09:14→20:07)
[2019-04-08] MEDS ORDERED: POTASSIUM CHLORIDE RIDER 100 ML IV ONE (09:25)
[2019-04-08] MEDS ORDERED: CIPROFLOXACIN INJ 400 MG in PREMIX 1 EACH IV SCH (09:30)
[2019-04-08] MEDS: BISACODYL 10 MG SUPP RECTAL SCH (09:30)
[2019-04-08] MEDS: LANSOPRAZOLE ODT 30 MG TABLET PER TUBE SCH (09:31)
[2019-04-08] MEDS: GENTAMICIN INJ 500 MG in SODIUM CHLORIDE 0.9% 100 ML IV SCH (11:03)
[2019-04-08] MEDS: FUROSEMIDE 40 MG/4 ML VIAL IV SCH ×2 (11:49→23:24)
[2019-04-08] MEDS: AMIODARONE INJ 450 MG in DEXTROSE 5% 241 ML IV SCH (12:04)
[2019-04-08] MEDS ORDERED: MAGNESIUM SULF RIDER 2 GM in PREMIX 1 EACH IV ONE (14:45)
[2019-04-08] MEDS: FAT EMULSION 20% 250 ML IV SCH (15:00)
[2019-04-08] MEDS: MULTIVITAMIN IV SCH (18:25)
[2019-04-08] MEDS: ELECTROLYTE IV SCH (18:25)
[2019-04-08] MEDS: TRACE ELEMENTS IV SCH (18:25)
[2019-04-08] MEDS: [UNRECOGNIZED DRUG - OTHER] IV SCH (18:25)
[2019-04-09] MEDS: ALBUTEROL/IPRATROPIUM 3 ML NEB RESP TX SCH ×4 (00:40→20:59)
[2019-04-09] MEDS: ALBUMIN 5% 12.5 GM in PREMIX 1 EACH IV SCH ×3 (00:55→17:16)
[2019-04-09] MEDS: AMIODARONE INJ 450 MG in DEXTROSE 5% 241 ML IV SCH ×4 (00:55→21:35)
[2019-04-09] MEDS ORDERED: ATROPINE 1 MG/10 ML SYRINGE ONE ×2 (01:58→01:59)
[2019-04-09 02:15] LABS: Basophils % 0.2 % (0.0-0.8); Hematocrit 25.5 VOL% (35.7-47.0); Hemoglobin 7.7 GM/DL (12.0-16.0); Immature Granulocytes % 1.2 %; Immature Granulocytes Absolute 0.17 #; Lymphocytes # 0.5 10*3/uL (1.4-4.0); Lymphocytes % 3.4 % (21.3-54.2); Mean Corpuscular HGB Conc 30.2 GM/DL (32-36); Mean Corpuscular Volume 96.6 FL (87-102); Mean Platelet Volume 12.4 FL (9.6-12.0); Monocytes % 1.8 % (1.7-12.7); NRBC # 0.18 10*3/uL; Neutrophils % 93.4 % (38.7-73.9); Red Blood Count 2.64 MC/CUMM (3.8-5.5); Red Cell Distribution Width 20.5 % (9.3-17.3); White Blood Count 13.7 T/CUMM (4-12)
[2019-04-09 02:17] LABS: Platelet Count 26 T/CUMM (130-400)
[2019-04-09 02:23] LABS: INR 1.1; PT Patient Result 11.5 SECS (9.6-12.2); Partial Thromboplastin Time 32.7 SECS (20.8-36.0)
[2019-04-09] MEDS ORDERED: FUROSEMIDE 20 MG/2 ML VIAL IV ONE (02:27)
[2019-04-09] MEDS ORDERED: SODIUM CHLORIDE 0.9% 1,000 ML IV PRN ×2 (02:28→03:12)
[2019-04-09] MEDS: fentaNYL INJ 1,250 MCG in SODIUM CHLORIDE 0.9% 225 ML IV PRN ×3 (02:31→12:36)
[2019-04-09 02:42] LABS: Anisocytosis 1+; Band Neutrophils 5 % (0-10); Hypochromasia 1+; Lymphocytes 2 % (20-55); Macrocytosis 1+; Microcytosis 1+; Nucleated Red Blood Cells 4 (0-5); Ovalocytes 1+; Polychromasia 1+; Segmented Neutrophils 92 % (50-85); Total Cells Counted 100
[2019-04-09 02:43] LABS: Giant Platelets Few; Platelet Estimate Decreased
[2019-04-09 02:52] LABS: ABG Base Excess -7.2 MMOL/L (-2.5-2.5); ABG HCO3 18.4 MMOL/L (20-26); ABG Oxygen Saturation 91.3 % (95-100); ABG PCO2 60.1 MM HG (35-48); ABG PO2 71.1 MM HG (80-95); ABG TCO2 20.9 MMOL/L (23-27); Allen Test Positive; Pt O2 Delivery Device Ventilator
[2019-04-09 02:54] LABS: ABG PH 7.165 (7.35-7.45)
[2019-04-09] MEDS ORDERED: SODIUM BICARBONATE 50 MEQ/50 ML VIAL IV ONE ×3 (02:57→02:58)
[2019-04-09 04:01] LABS: Albumin 2.8 G/DL (3.4-5.0); Bilirubin,Total 0.5 MG/DL (0.2-1.0); Calcium 8.6 MG/DL (8.5-10.1); Osmolality,Calculated 311.3 MOS/KG (273-304); Total Protein 5.6 G/DL (6.4-8.3)
[2019-04-09 04:14] VITALS: BP 96/65
[2019-04-09] MEDS: VANCOMYCIN INJ 1,250 MG in SODIUM CHLORIDE 0.9% 250 ML IV SCH (04:28)
[2019-04-09] MEDS: POTASSIUM CHLORIDE RIDER 20 MEQ in PREMIX 1 EACH IV PRN (05:30)
[2019-04-09] MEDS: COLLAGENASE OINT 30 GM TUBE TOP SCH (09:00)
[2019-04-09] MEDS: AMIODARONE 200 MG TABLET PER TUBE SCH ×2 (09:00→21:18)
[2019-04-09] MEDS: methylPREDNISolone SOD SUC 40 MG/1 ML VIAL IV SCH ×2 (09:34→18:27)
[2019-04-09] MEDS: INSULIN REGULAR 100 UNIT/ML SUBCUT SCH ×3 (09:34→18:40)
[2019-04-09] MEDS: BISACODYL 10 MG SUPP RECTAL SCH (09:35)
[2019-04-09] MEDS: LANSOPRAZOLE ODT 30 MG TABLET PER TUBE SCH (09:35)
[2019-04-09] MEDS: FUROSEMIDE 40 MG/4 ML VIAL IV SCH (11:50)
[2019-04-09] MEDS: POTASSIUM CHLORIDE RIDER 10 MEQ in PREMIX 1 EACH IV PRN (12:20)
[2019-04-09] MEDS: NOREPINEPHRINE 16 MG in SODIUM CHLORIDE 0.9% 234 ML IV PRN (13:05)
[2019-04-09] MEDS ORDERED: LORazepam 2 MG/1 ML VIAL ONE (13:16)
[2019-04-09] MEDS: FAT EMULSION 20% 250 ML IV SCH (14:48)
[2019-04-09] MEDS: ELECTROLYTE IV SCH (18:38)
[2019-04-09] MEDS: MULTIVITAMIN IV SCH (18:38)
[2019-04-09] MEDS: [UNRECOGNIZED DRUG - OTHER] IV SCH (18:38)
[2019-04-09] MEDS: TRACE ELEMENTS IV SCH (18:38)
[2019-04-10] MEDS: FUROSEMIDE 40 MG/4 ML VIAL IV SCH ×2 (00:12→11:32)
[2019-04-10] MEDS: fentaNYL INJ 1,250 MCG in SODIUM CHLORIDE 0.9% 225 ML IV PRN ×2 (00:43→08:58)
[2019-04-10] MEDS: ALBUTEROL/IPRATROPIUM 3 ML NEB RESP TX SCH ×2 (01:16→07:20)
[2019-04-10] MEDS: ALBUMIN 5% 12.5 GM in PREMIX 1 EACH IV SCH ×2 (01:29→09:36)
[2019-04-10] MEDS: INSULIN REGULAR 100 UNIT/ML SUBCUT SCH ×3 (01:30→11:32)
[2019-04-10 02:59] LABS: ABG Base Excess -6.6 MMOL/L (-2.5-2.5); ABG HCO3 18.9 MMOL/L (20-26); ABG Oxygen Saturation 94.2 % (95-100); ABG PCO2 56.9 MM HG (35-48); ABG PO2 75.9 MM HG (80-95); ABG TCO2 20.9 MMOL/L (23-27); Allen Test Positive; Pt O2 Delivery Device Ventilator
[2019-04-10 03:07] LABS: ABG PH 7.189 (7.35-7.45)
[2019-04-10] MEDS ORDERED: SODIUM BICARBONATE 50 MEQ/50 ML VIAL IV ONE ×2 (03:30→05:39)
[2019-04-10 04:09] LABS: Calcium 9.1 MG/DL (8.5-10.1); Osmolality,Calculated 313.6 MOS/KG (273-304)
[2019-04-10] MEDS ORDERED: EPINEPHrine 1 MG/ML VIAL ONE (04:09)
[2019-04-10] MEDS ORDERED: EPINEPHrine 1 MG/10 ML SYRINGE ONE (04:09)
[2019-04-10] MEDS ORDERED: ATROPINE 1 MG/10 ML SYRINGE ONE (04:09)
[2019-04-10] MEDS ORDERED: ETOMIDATE 20 MG/10 ML VIAL IV ONE (04:09)
[2019-04-10] MEDS ORDERED: VECURONIUM 10 MG VIAL IV ONE (04:19)
[2019-04-10 04:34] LABS: INR 1.1; PT Patient Result 11.6 SECS (9.6-12.2)
[2019-04-10 05:15] LABS: Basophils % 0.2 % (0.0-0.8); Hematocrit 21.5 VOL% (35.7-47.0); Immature Granulocytes % 1.1 %; Immature Granulocytes Absolute 0.13 #; Lymphocytes # 0.3 10*3/uL (1.4-4.0); Lymphocytes % 2.4 % (21.3-54.2); Mean Corpuscular HGB Conc 28.8 GM/DL (32-36); Mean Corpuscular Volume 99.5 FL (87-102); Monocytes % 1.9 % (1.7-12.7); NRBC # 0.18 10*3/uL; Neutrophils % 94.4 % (38.7-73.9); Red Blood Count 2.16 MC/CUMM (3.8-5.5); Red Cell Distribution Width 20.8 % (9.3-17.3); White Blood Count 11.7 T/CUMM (4-12)
[2019-04-10 05:18] LABS: Hemoglobin 6.2 GM/DL (12.0-16.0); Platelet Count 26 T/CUMM (130-400)
[2019-04-10 05:22] LABS: ABG Base Excess -14.5 MMOL/L (-2.5-2.5); ABG HCO3 12.8 MMOL/L (20-26); ABG Oxygen Saturation 76.2 % (95-100); ABG PO2 55.4 MM HG (80-95); Allen Test Positive
[2019-04-10] MEDS ORDERED: SODIUM CHLORIDE 0.9% 1,000 ML IV PRN ×2 (05:24→05:40)
[2019-04-10 05:30] LABS: ABG PH 6.991 (7.35-7.45)
[2019-04-10 05:44] LABS: Anisocytosis 1+; Band Neutrophils 3 % (0-10); Basophilic Stippling Slight; Hypochromasia 1+; Lymphocytes 3 % (20-55); Microcytosis 1+; Polychromasia Slight; Segmented Neutrophils 91 % (50-85); Total Cells Counted 100
[2019-04-10 05:45] LABS: Platelet Estimate Decreased
[2019-04-10] MEDS: AMIODARONE INJ 450 MG in DEXTROSE 5% 241 ML IV SCH (06:21)
[2019-04-10] MEDS: methylPREDNISolone SOD SUC 40 MG/1 ML VIAL IV SCH (06:24)
[2019-04-10] MEDS: POTASSIUM CHLORIDE RIDER 10 MEQ in PREMIX 1 EACH IV PRN (06:45)
[2019-04-10] MEDS ORDERED: CLINDAMYCIN INJ 900 MG in PREMIX 1 EACH IV SCH (08:30)
[2019-04-10] MEDS ORDERED: methylPREDNISolone SOD SUC 40 MG/1 ML VIAL IV SCH (08:30)
[2019-04-10 08:40] LABS: ABG Base Excess -6.1 MMOL/L (-2.5-2.5); ABG HCO3 21.9 MMOL/L (20-26); ABG Oxygen Saturation 81.9 % (95-100); ABG PCO2 58.7 MM HG (35-48); ABG PO2 51.9 MM HG (80-95); ABG TCO2 23.7 MMOL/L (23-27)
[2019-04-10 08:41] LABS: Allen Test Positive; Pt O2 Delivery Device Ventilator
[2019-04-10 08:42] LABS: ABG PH 7.189 (7.35-7.45)
[2019-04-10] MEDS: COLLAGENASE OINT 30 GM TUBE TOP SCH (09:05)
[2019-04-10] MEDS: LANSOPRAZOLE ODT 30 MG TABLET PER TUBE SCH (09:37)
[2019-04-10] MEDS: BISACODYL 10 MG SUPP RECTAL SCH (09:37)
[2019-04-10] MEDS: AMIODARONE 200 MG TABLET PER TUBE SCH (09:37)
[2019-04-10] MEDS: GENTAMICIN INJ 500 MG in SODIUM CHLORIDE 0.9% 100 ML IV SCH (10:56)
== END 2019-04-10 10:48 | disposition expired | DRG 870 ==
LOC: N.ED 10:20 → N.EDINP 13:44 → SUATTDRO 13:44 → N.CC 15:05
PROVIDERS: ADMIT Internal Medicine; ATTEND Internal Medicine